=== PATIENT | male | born 1950 | race African-American/Black ===

== ENCOUNTER 2021-10-25 08:49 | Inpatient (IN) | payer MEDICARE, OTHER, SELFPAY ==
[2021-10-25] VITALS (32 sets, daily range): BP systolic 126–194; BP diastolic 47–94; PULSE 65–90; RESP 13–30; TEMP 36.1–37.1; O2SAT 93–100
--- NOTE | ~2021-10-25 | CT_ITS ---
EXAMINATION: CT abdomen pelvis w con DATE: 10/25/2021 09:39 INDICATION: Right upper quadrant abdominal pain, radiating to right shoulder TECHNIQUE: Computed tomography (CT) of the abdomen and pelvis was performed with 100 CC Omnipaque 300 intravenous contrast. Automated exposure control and iterative reconstruction technique were employe d. Exam dose: 387.61 mGy-cm total exam DLP. COMPARISON: None. FINDINGS: Mild bilateral gynecomastia. There is patchy bilateral lower lobe infiltrate and/atelectasis. Normal heart size. Coronary artery c alcifications. No pericardial or pleural effusion. No hepatic, splenic, pancreatic, and adrenal or right renal space-occupying mass lesion is detected. There are at least 2 left renal cysts, the larger measuring approximately 1.8 cm. Moderately prominent prostate enlargement. Radiopaque prostate seeds. The urinary bladder is relatively evacuated, unremarkable. No urinary tract calculus or hydroureteron ephrosis. There is atherosclerotic calcification but normal caliber of the abdominal aorta. No intraperitoneal or retroperitoneal or pelvic mass lesion or adenopathy. Prominent gastric distention and gastric air-fluid level. There is moderate intraperitoneal free air. Small amount of fluid around the superolateral aspect of the liver. Consider proximal duodenal or di stal gastric perforated ulcer. Normal appendix. There is a prominent amount of fecal material in the rectum and colon. No small or large bowel obstru ction is detected. Diffuse idiopathic skeletal hyperostosis of the thoracic spine. Mild degenerative change of the lumba r spine. Bilateral hip osteoarthritis. No suspicious osteolytic or osteoblastic lesions. IMPRESSION: Intraperitoneal free air consistent with hollow viscus perforation. There is prominent gastric distention and gastric air-fluid level is some soft tissue thickening in t he gastroduodenal area. Consider distal gastric or proximal duodenal perforation, possibly due to ulc er disease. Dr. Wood telephoned the report on 10/25/2021 at 0954 hours to emergency room medical affairs director Lenora . Reviewed, dictated and finalized at [facility]. Reviewed, dictated and finalized at [facility]. IMPRESSION: Intraperitoneal free air consistent with hollow viscus perforation . There is prominent gastric distention and gastric air-fluid level is some soft tissue thickening in the gastroduodenal area. Consider distal gastric or proxim al duodenal perforation, possibly due to ulcer disease. Dr. Wood telephoned the report on 10/25/2021 at 0954 hours to emergency room med ical medical administrative assistant Lenora.
--- NOTE | ~2021-10-25 | XR_ITS ---
EXAMINATION: XR abdomen NG/feed tube insert DATE: 10/25/2021 13:18 INDICATION: Nasogastric tube placement. TECHNIQUE: An upright view of the abdomen was obtained. COMPARISON: CT abdomen and pelvis 10/25/2021 FINDINGS: The lower abdomen is excluded. The nasogastric tube tip is in the stomach. There are no dil ated loops of bowel. There is a surgical drain on the right. Skin mc are noted. IMPRESSION: 1. Nasogastric tube tip in the stomach. Reviewed, dictated and finalized at location [facility].
--- NOTE | ~2021-10-25 | XR_ITS ---
EXAMINATION: XR UGI water soluble wo kub DATE: 10/28/2021 11:18 INDICATION: Recent repair of gastric ulcer. Evaluate for leak. TECHNIQUE: Water-soluble contrast with gas effervescent crystals were administered by NG tube. There after, overhead images of the abdomen were performed. 1 minutes of fluroscopy. 5 fluoroscopic images. FINDINGS: Initial images demonstrate a NG tube in the stomach with percutaneous drainage catheter in the epigas tric region. There is laparotomy staple line. There is no significant hiatal hernia. No gastroesopha geal reflux witnessed during the course of the study. No evidence for contrast extravasation identifi ed. The gastric folds are normal. The proximal duodenum is also normal in appearance. IMPRESSION: 1. Unremarkable limited upper GI examination without evidence for contrast extravasation. Reviewed, dictated and finalized at location [facility]. IMPRESSION: 1. Unremarkable limited upper GI examination without evidence for contrast ext ravasation.
--- NOTE | 2021-10-25 08:58 | ECG_ITS ---
Measurements Intervals [place] Rate: 67 P: 52 SD: 145 QRS: 1 QRSD: 104 T: 59 QT: 375 QTc: 397 Interpretive Statements SINUS RHYTHM LEFT VENTRICULAR HYPERTROPHY WITH ST-T CHANGE BORDERLINE ST-T WAVE ABNORMALITY- ANTERIOR LEADS BASELINE ARTIFACT- II, III, AVF, V5 BORDERLINE ECG Electronically Signed On 10-25-2021 9:50:49 CDT by Alexandre Live D.O.
--- NOTE | 2021-10-25 09:03 | ED.SYNCOPE ---
HPI - Syncope General Chief Complaint: Syncope <Corrine Granger PA-C - Last Filed: 10/25/21 18:48> Stated Complaint: Dizziness <WANG Hess Last Filed: 10/25/21 18:48> Time Seen by Provider: 10/25/21 08:57 <WANG Hess Last Filed: 10/25/21 18:48> Source: patient <WANG Hess Last Filed: 10/25/21 18:48> Mode of arrival: ambulatory <WANG Hess Last Filed: 10/25/21 18:48> Limitations: no limitations <WANG Hess Last Filed: 10/25/21 18:48> History of Present Illness HPI narrative: Patient is a 71-year-old male who presents to the ED with report of right upper abdominal pain. Patient reports having diffuse upper abdominal pain, worst in right upper quadrant, radiating to back and right shoulder. Pain began 2 hours ago. He reports feeling nauseous and slightly dizzy due to the pain. No vomiting. No fever, chills. He has been slightly constipated lately and had a small BM yesterday, no blood. Patient has never had pain like this before. He has not taken anything for pain prior to arrival. No previous history of gallbladder issues or gallstones. Patient believes he had a history of ulcer in the distant past. Has had issues with acid reflux and intermittent upper abdominal pain X 1 year, but states he has been taking apple cider vinegar which has helped. He did have an endoscopy around 3 years ago at the [facility]. Hx of H. pylori. No ETOH use. <WANG Hess Last Filed: 10/25/21 18:48> Related Data Home Medications: Home Medications Medication Instructions Recorded Confirmed cetirizine 10 mg tablet 10 mg PO DAILY PRN Allergy Symptoms 10/25/21 10/25/21 cyclobenzaprine 10 mg tablet 10 mg PO TID PRN Muscle Spasm 10/25/21 10/25/21 levalbuterol tartrate 45 2 inh inhalation Q6H PRN Dyspnea 10/25/21 10/25/21 mcg/actuation aerosol inhaler (Xopenex HFA) lisinopril 20 1 tablet PO DAILY 10/25/21 10/25/21 mg-hydrochlorothiazide 12.5 mg tablet meloxicam 15 mg tablet 15 mg PO DAILY PRN Pain 10/25/21 10/25/21 rosuvastatin 5 mg tablet 2.5 mg PO DAILY 10/25/21 10/25/21 simethicone 80 mg chewable tablet 80 mg PO DAILY PRN Heartburn 10/25/21 10/25/21 tamsulosin 0.4 mg capsule 0.4 mg PO HS 10/25/21 10/25/21 <Corrine Granger PA-C - Last Filed: 10/25/21 18:48> Allergies/Adverse Reactions: Allergies Allergy/AdvReac Type Severity Reaction Status Date / Time [id number]-MrH Reductase Allergy Other Verified 10/25/21 14:59 Inhibitor <Corrine Granger PA-C - Last Filed: 10/25/21 18:48> Review of Systems Review of Systems: CONSTITUTIONAL: Denies fever, chills, or sweats. CARDIOVASCULAR: Denies chest pain. RESPIRATORY: Denies dyspnea. GASTROINTESTINAL: Reports right upper quadrant abdominal pain, nausea, constipation. Denies rectal bleeding, vomiting, or diarrhea. MUSCULOSKELETAL: Reports pain radiating to back and right shoulder. NEUROLOGIC: Reports dizziness. Denies headache, numbness, or weakness. <Corrine Granger PA-C - Last Filed: 10/25/21 18:48> All systems reviewed & are unremarkable except as noted in HPI and below <Corrine Granger PA-C - Last Filed: 10/25/21 18:48> PMFSH Past Medical History Medical History: Medical History BPH (benign prostatic hyperplasia) COPD (chronic obstructive pulmonary disease) History of Helicobacter pylori infection Hypercholesterolemia Hypertension CLYDE (obstructive sleep apnea) <Corrine Granger PA-C - Last Filed: 10/25/21 18:48> Surgical History Surgical History: Surgical History History of colonoscopy History of endoscopy <Corrine Granger PA-C - Last Filed: 10/25/21 18:48> Family History Family History: Family History (Updated 10/25/21 @ 15:24 by Jaylin Ziegler RN) Father Malignant neoplasm of prostate Mother Non-Hodgkin lymphoma
[2021-10-25 09:05] LABS: Basophils Percent Auto 0.5 % (0.2-1.2); Eosinophils Absolute Auto 0.2 K/mm3 (0-0.3); Hematocrit 42.8 % (42.0-52.0); Hemoglobin 13.8 g/dL (14.0-18.0); Immature Granulocyte Absolute 0.03 K/mm3 (0.00-0.031); Immature Granulocyte Percent A 0.4 % (0-0.5); Lymphocytes Absolute Auto 3.43 K/mm3 (0.9-3.2); Lymphocytes Percent Auto 42.8 % (18.3-44.2); Mean Corpuscular HGB Conc 32.2 g/dl (32-36); Mean Corpuscular Volume 89.9 fl (80-100); Mean Platelet Volume 9.1 fl (7.4-10.4); Monocytes Absolute Auto 0.7 K/mm3 (0.1-0.6); Monocytes Percent Auto 8.7 % (2.6-8.5); Neutrophils Absolute Auto 3.7 K/mm3 (1.3-6.7); Neutrophils Percent Auto 45.6 % (45.5-73.1); Platelet Count Result 235 k/mm3 (150-375); Red Blood Count 4.76 M/mm3 (4.6-6.20); Red Cell Distribution Width 13.9 % (11.5-14.5)
[2021-10-25 09:07] LABS: Glucose Point of Care 161 mg/dl (65-105)
[2021-10-25 09:15] LABS: Alanine Aminotransferase 18 U/L (6-50); Albumin Level 4.6 g/dL (3.5-5.1); Alkaline Phosphatase 69 U/L (38-126); Anion Gap 13 mmol/L (8-16); Aspartate Amino Transferase 24 U/L (17-59); Bilirubin,Total 0.7 mg/dL (0.2-1.3); Blood Urea Nitrogen 21 mg/dL (9-20); Carbon Dioxide 19 mmol/L (22-30); Chloride 104 mmol/L (98-107); Estimated CRCL calculation 38 ml/min; Estimated Glomerular Filt Rate 46; Glucose 159 mg/dL (65-110); Potassium 3.9 mmol/L (3.4-5.0); Sodium 136 mmol/L (137-145)
[2021-10-25] MEDS: SODIUM CHLORIDE 0.9% IV 1,000 ML 999 ML IV CONT ×2 (09:17→10:29)
[2021-10-25] MEDS: MORPHINE SULFATE (*CRX) 4 MG/ML INJ IV PUSH ×2 (09:17→17:44)
[2021-10-25] MEDS: ONDANSETRON INJ 4 MG/2 ML VIAL IV PUSH (09:18)
[2021-10-25 09:26] LABS: Troponin I < 0.012 ng/mL (0.000-0.034)
[2021-10-25] MEDS: HYDROmorphone HCL INJ (*CRX) 1 MG/ML SYR IV PUSH (10:04)
--- NOTE | 2021-10-25 10:16 | PM.IMHP ---
H&P: HPI History of Present Illness Date/Time: 10/25/21 10:16 Chief Complaint: upper abdominal pain Narrative: Pt is a 71 y/o M presenting to ED c/o severe upper abdominal pain. Pt reports pain started acutely 2 hours prior to him coming to hospital. Pt reports pain is severe, constant, and sharp most localized to RUQ. Pt reports radiation to R shoulder, chest, back. Pt reports associated anorexia, nausea. Pt reports intermittent, mild epigastric pain over last few mos but nothing this severe. Pt reports having been told he has ulcers in the remote past. Review of Systems Constitutional: Constitutional: Reports anorexia, Denies chills, Denies fatigue, Denies fever(s), Denies lethargy, Denies malaise, Reports poor appetite, Denies weakness, Denies weight gain and Denies weight loss Eyes: Eyes: Reports no additional eye complaints ENT: Reports system reviewed and no additional complaints, except as documented Cardiovascular: Cardiovascular: Reports no additional cardiovascular complaints Respiratory: Respiratory: Reports no additional respiratory complaints Gastrointestinal: Gastrointestinal: Reports as per HPI, Reports abdominal pain, Reports bloating, Reports constipation, Reports GI cramping, Reports heartburn, Reports nausea and Denies vomiting Genitourinary: Genitourinary: Reports no additional male genitourinary complaints Musculoskeletal: Musculoskeletal: Reports no additional musculoskeletal complaints Integumentary/Breasts: Skin/Breast: Reports system reviewed and no additional complaints, except as docu Neurologic: Reports system reviewed and no additional complaints, except as documented Psychiatric: Psychiatric: Reports no additional psychiatric complaints Endocrine: Endocrine: Reports no additional endocrine complaints Hematologic/Lymphatic: Hematologic/Lymphatic: Reports no additional hematologic/lymphatic complaints Allergic/Immunologic: Allergic/Immunologic: Reports no additional allergic/immunologic complaints [facility] Past Medical History Medical History BPH (benign prostatic hyperplasia) History of Helicobacter pylori infection Hypercholesterolemia Hypertension Surgical History Surgical History History of colonoscopy History of endoscopy Social History Social History Smoking status: Former smoker Alcohol intake: current Alcohol use details: Glass of wine 1-2 times a year Meds Home Medications and Allergies Allergies Allergy/AdvReac Type Severity Reaction Status Date / Time Otbxiru-SZQ-ObN Reductase Allergy Other Verified 10/25/21 09:49 Inhibitor Vital Signs Vital Signs - 24 hr 10/25/21 08:53 10/25/21 08:54 10/25/21 08:56 Temperature 36.3 C L Pulse Rate 70 65 71 Respiratory Rate 19 28 H Blood Pressure 157/51 H 157/51 H Pulse Oximetry 95 96 Oxygen Delivery Room Air 10/25/21 09:00 10/25/21 09:01 10/25/21 09:15 Temperature Pulse Rate 79 77 77 Respiratory Rate 26 H 30 H 21 H Blood Pressure 161/47 H Pulse Oximetry 96 97 96 Oxygen Delivery 10/25/21 09:16 10/25/21 09:36 10/25/21 09:45 Temperature Pulse Rate 75 89 Respiratory Rate 20 13 16 Blood Pressure 138/60 Pulse Oximetry 100 93 95 Oxygen Delivery 10/25/21 10:07 Temperature Pulse Rate 88 Respiratory Rate Blood Pressure Pulse Oximetry Oxygen Delivery Exam Const: General: cooperative, alert, awake, Physically active, acute distress mild and uncomfortable Nutritional Appearance: average body habitus Orientation/consciousness: patient oriented x3 HENMT: Head: normal to inspection, normocephalic and atraumatic Eyes: General: appearance normal, both eyes and all related structures Neck: Neck: normal visual inspection, full ROM and no lymphadenopathy Chest: Chest palpation & inspection: normal ins
--- NOTE | 2021-10-25 10:48 | WPDHPUPDATE1 ---
History and Physical Update Update Date/Time: 10/25/21 10:48 History and Physical has been reviewed, including an updated exam of the patient. There are NO changes in the patient's condition. Risks, benefits, and alternatives have been discussed and questions answered. Patient agrees to proceed with procedure.
[2021-10-25 10:58] LABS: SARS-CoV-2 RNA PCR Negative
--- NOTE | 2021-10-25 11:19 | WPDANESEPPF ---
Anes - Initial Pre Proc Eval Procedure: Operation Date: 10/25/21 11:30 Proposed Procedures p Exploratory Laparotomy, Possible Bowel Resection,Possible Ostomy - Korina Sandoval MD Date/Time: 10/25/21 11:19 Surgeon: Korina Sandoval MD Pre Op Diagnosis: Dizziness Patient Data Age: 71 Gender: M Height: 1.7 m Weight: 78 kg Last Vital Signs Temp 36.6 C 10/25/21 11:09 Pulse 88 10/25/21 11:09 Resp 20 10/25/21 11:09 BP 168/63 H 10/25/21 11:09 Pulse Ox 98 10/25/21 11:09 O2 Del Method Room Air 10/25/21 11:09 Allergies Allergy/AdvReac Type Severity Reaction Status Date / Time Fjlnxyh-POV-BxO Reductase Allergy Other Verified 10/25/21 09:49 Inhibitor Laboratory Tests 10/25/21 10/25/21 10/25/21 09:00 09:00 09:06 WBC 8.0 K/mm3 K/mm3 (4.5-10.0) RBC 4.76 M/mm3 M/mm3 (4.6-6.20) Hgb 13.8 g/dL L g/dL (14.0-18.0) Hct 42.8 % % (42.0-52.0) MCV 89.9 fl fl (80-100) MCH 29.0 pg pg (26-34) MCHC 32.2 g/dl g/dl (32-36) RDW 13.9 % % (11.5-14.5) Plt Count 235 k/mm3 k/mm3 (150-375) MPV 9.1 fl fl (7.4-10.4) Immature Gran % (Auto) 0.4 % % (0-0.5) Neut % (Auto) 45.6 % % (45.5-73.1) Lymph % (Auto) 42.8 % % (18.3-44.2) [place] % (Auto) 8.7 % H % (2.6-8.5) Eos % (Auto) 2.0 % % (0-4.4) Baso % (Auto) 0.5 % % (0.2-1.2) Lymph # (Auto) 3.43 K/mm3 H K/mm3 (0.9-3.2) [place] # (Auto) 0.7 K/mm3 H K/mm3 (0.1-0.6) Eos # (Auto) 0.2 K/mm3 K/mm3 (0-0.3) Baso # (Auto) 0.0 K/mm3 K/mm3 (0.0-0.1) Abs Immat Gran (auto) 0.03 K/mm3 K/mm3 (0.00-0.031) Absolute Neuts (auto) 3.7 K/mm3 K/mm3 (1.3-6.7) Absolute Nucleated RBC 0.0 K/mm3 K/mm3 (0.0-0.012) Nucleated RBC % 0.0 % % (0.0-0.2) Sodium 136 mmol/L L mmol/L (137-145) Potassium 3.9 mmol/L mmol/L (3.4-5.0) Chloride 104 mmol/L mmol/L (98-107) Carbon Dioxide 19 mmol/L L mmol/L (22-30) Anion Gap 13 mmol/L mmol/L (8-16) BUN 21 mg/dL H mg/dL (9-20) Creatinine 1.50 mg/dL H mg/dL (0.7-1.3) Estim Creat Clear Calc 38 ml/min ml/min Estimated GFR 46 L (59 - ) Glucose 159 mg/dL H mg/dL (65-110) POC Capillary Glucose 161 mg/dl H mg/dl (65-105) Calcium 9.0 mg/dL mg/dL (8.4-10.2) Total Bilirubin 0.7 mg/dL mg/dL (0.2-1.3) AST 24 U/L U/L (17-59) ALT 18 U/L U/L (6-50) Alkaline Phosphatase 69 U/L U/L (38-126) Troponin I < 0.012 ng/mL ng/mL (0.000-0.034) Total Protein 8.0 g/dL g/dL (6.3-8.2) Albumin 4.6 g/dL g/dL (3.5-5.1) SARS-CoV-2 RNA (RT-PCR) 10/25/21 10:05 WBC RBC Hgb Hct MCV MCH MCHC RDW Plt Count MPV Immature Gran % (Auto) Neut % (Auto) Lymph % (Auto) [place] % (Auto) Eos % (Auto) Baso % (Auto) Lymph # (Auto) [place] # (Auto) Eos # (Auto) Baso # (Auto) Abs Immat Gran (auto) Absolute Neuts (auto) Absolute Nucleated RBC Nucleated RBC % Sodium Potassium Chloride Carbon Dioxide Anion Gap BUN Creatinine Estim Creat Clear Calc Estimated GFR Glucose POC Capillary Glucose Calcium Total Bilirubin AST ALT Alkaline Phosphatase Troponin I Total Protein Albumin SARS-CoV-2 RNA (RT-PCR) Negative Patient hx anesthesia problems: none Family hx anesthesia problems: none Results Review: All pre-operative results and documents have been reviewed as part of the pre-operative evaluation. [facility] Past Medical Hist
--- NOTE | 2021-10-25 12:28 | W.PM.PROC2 ---
Procedure Note - Detailed Date of Procedure 10/25/21 Pre-op Diagnosis Perforated viscus Post-op Diagnosis Other ( perforated gastric ulcer) Procedure Performed exploratory laparotomy, repair of perforated gastric ulcer with Heri patch Surgeon Korina Sandoval MD Anesthesia General Indications 71-year-old male presenting to the emergency department with perforated viscus Findings perforated distal gastric ulcer Description of Procedure The the patient was taken to the operating room and placed in the supine position. After adequate induction of general anesthesia, the patient was prepped and draped in the normal sterile fashion. A time-out was then done to verify the patient's identity as well as the procedure being performed. An upper midline incision was then performed and access was gained into the peritoneal cavity. Upon entering the peritoneum, a gush of air was noted as well as a moderate amount of succus, free fluid. The free fluid and succus was evacuated with the suction device and approximately 500 cc of this fluid was noted in the canister. I then began exploration of the abdomen. The lower abdomen was noted to be benign appearing. Upon examining the upper abdomen, more gastric succus was encountered. I was then able to identify a perforation in the distal stomach. This her perforation was noted to be about 1 x 1 cm. There was surrounding inflammation at the area of perforation. I went ahead and primarily repaired this perforated gastric ulcer in 2 layers. Once repaired, I reinforced this closure with a omental patch. I then positioned the NG just proximal to our repair. We then flushed approximately 50 cc of normal saline through the NG. No further leakage was noted at this time. The NG was then taped into position. I then copiously irrigated the abdomen and no other pathology was encountered. I then left a 15 Tamazight JAMIL drain in the upper abdomen terminating near the site of the repair. The upper midline incision was then closed at the fascial level with PDS suture. The skin was closed with skin mc. The patient tolerated the procedure well and was extubated in the operating room postoperatively. He will be transferred to the recovery room in stable condition. Estimated Blood Loss 20 Drains Yes Pathology None sent Complications No immediate complications Condition Stable Disposition PACU [facility] Billing Surgery - Charge Forward: Surgery Billing
[2021-10-25] MEDS: LACTATED RINGERS 1,000 ML 100 ML IV CONT ×2 (12:38→15:33)
[2021-10-25] MEDS: LACTATED RINGERS 1,000 ML 30 ML IV CONT (12:38)
[2021-10-25] MEDS: fentaNYL CITRATE INJ (*CRX) 100 MCG/2 ML VIAL 25 MCG IV PUSH ×4 (12:57→13:16)
--- NOTE | 2021-10-25 14:55 | ADMGEN ---
This patient, Ricardo Damon, was admitted to Medical Room 253-01. Patient/family oriented to hospital policies and general routines including ID bracelet, bed and alarms, visiting hours, pain management, procedures, bathroom and other care routines, personal items, smoking policy, room service/diet, and visiting hours. Information on how to activate the Rapid Response Team has been discussed. Patient/Family are encouraged to report perceived risks to care and to ask questions if they do not understand what they are told or what they should do.
[2021-10-25 17:44] LABS: Add Urine Microscopic? YES; Appearance Urine Clear (Clear); Bilirubin Urine Negative (Negative); Blood Urine Trace-Intact (Negative); Color Urine Yellow (Yellow); Glucose Urine UA Negative (Negative); Ketones Urine Negative (Negative); Leukocyte Esterase Ur Negative LEU/UL (Negative); Nitrate Urine Negative (Negative); Protein Urine 1+ mg/dL (Negative); Specific Grav Ur 1.015 (1.001-1.035); Urobilinogen Urine 0.2 mg/dL (<2.0); pH Urine 5.5 (5.0-9.0)
[2021-10-25 17:50] LABS: Bacteria Urine Trace /hpf; Mucus Urine Rare /lpf; WBC Urine 0-3 /hpf
[2021-10-25] MEDS: FAMOTIDINE 20 MG/2 ML VIAL IV PUSH (21:15)
[2021-10-26 01:08] VITALS: BP 106/55; PULSE 82; RESP 20; TEMP 36.5; O2SAT 98
[2021-10-26] MEDS: LACTATED RINGERS 1,000 ML 100 ML IV CONT ×2 (03:50→17:23)
[2021-10-26] MEDS: MORPHINE SULFATE (*CRX) 2 MG/ML INJ IV PUSH (04:00)
[2021-10-26 05:39] LABS: Hematocrit 40.1 % (42.0-52.0); Hemoglobin 13.4 g/dL (14.0-18.0); Mean Corpuscular HGB Conc 33.4 g/dl (32-36); Mean Corpuscular Hemoglobin 29.6 pg (26-34); Mean Corpuscular Volume 88.5 fl (80-100); Mean Platelet Volume 9.2 fl (7.4-10.4); Platelet Count Result 202 k/mm3 (150-375); Red Blood Count 4.53 M/mm3 (4.6-6.20); Red Cell Distribution Width 14.3 % (11.5-14.5); White Blood Count 6.2 K/mm3 (4.5-10.0)
[2021-10-26 05:42] LABS: Anion Gap 6 mmol/L (8-16); Blood Urea Nitrogen 20 mg/dL (9-20); Calcium 7.8 mg/dL (8.4-10.2); Carbon Dioxide 24 mmol/L (22-30); Chloride 104 mmol/L (98-107); Estimated CRCL calculation 38 ml/min; Estimated Glomerular Filt Rate 56; Glucose 91 mg/dL (65-110); Potassium 4.4 mmol/L (3.4-5.0); Sodium 134 mmol/L (137-145)
[2021-10-26 06:00] VITALS: BP 111/56; PULSE 78; RESP 20; TEMP 36.2; O2SAT 98
--- NOTE | 2021-10-26 06:49 | WPDANESPN ---
Anes - Prog Note Post-Op Date/Time: 10/26/21 06:49 Cardiovascular status: normal Respiratory status: normal Airway patency: baseline Mental status: baseline Post-Op hydration status: normal Vital Signs: Last Vital Signs Temp 36.5 C 10/26/21 01:08 Pulse 82 10/26/21 01:08 Resp 20 10/26/21 01:08 BP 106/55 L 10/26/21 01:08 Pulse Ox 98 10/26/21 01:08 O2 Del Method Nasal Cannula 10/25/21 20:00 O2 Flow Rate 2 10/25/21 20:00 Pain Score (VAS): 0 I/O: Intake & Output 10/25/21 10/25/21 10/26/21 15:59 23:59 07:59 Intake Total 869 617 4969 Output Total 170 160 Balance 600 80 7604 Laboratory Tests 10/26/21 05:10 10/25/21 10/25/21 10/25/21 09:00 09:00 09:06 WBC 8.0 RBC 4.76 Hgb 13.8 L Hct 42.8 MCV 89.9 MCH 29.0 MCHC 32.2 RDW 13.9 Plt Count 235 MPV 9.1 Immature Gran % (Auto) 0.4 Neut % (Auto) 45.6 Lymph % (Auto) 42.8 [place] % (Auto) 8.7 H Eos % (Auto) 2.0 Baso % (Auto) 0.5 Lymph # (Auto) 3.43 H [place] # (Auto) 0.7 H Eos # (Auto) 0.2 Baso # (Auto) 0.0 Abs Immat Gran (auto) 0.03 Absolute Neuts (auto) 3.7 Absolute Nucleated RBC 0.0 Nucleated RBC % 0.0 Sodium 136 L Potassium 3.9 Chloride 104 Carbon Dioxide 19 L Anion Gap 13 BUN 21 H Creatinine 1.50 H Estim Creat Clear Calc 38 Estimated GFR 46 L Glucose 159 H POC Capillary Glucose 161 H Calcium 9.0 Total Bilirubin 0.7 AST 24 ALT 18 Alkaline Phosphatase 69 Troponin I < 0.012 Total Protein 8.0 Albumin 4.6 Urine Color Urine Appearance Urine pH Ur Specific [place] Urine Protein Urine Glucose (UA) Urine Ketones Ur Blood (Man) Urine Nitrate Urine Bilirubin Urine Urobilinogen Leukocyte Esterase Rfl Urine RBC Urine WBC Urine Bacteria Urine Mucus SARS-CoV-2 RNA (RT-PCR) 10/25/21 10/25/21 10/26/21 10:05 17:34 05:10 WBC Pending RBC Pending Hgb Pending Hct Pending MCV Pending MCH Pending MCHC Pending RDW Pending Plt Count Pending MPV Pending Immature Gran % (Auto) Pending Neut % (Auto) Pending Lymph % (Auto) Pending [place] % (Auto) Pending Eos % (Auto) Pending Baso % (Auto) Pending Lymph # (Auto) Pending [place] # (Auto) Pending Eos # (Auto) Pending Baso # (Auto) Pending Abs Immat Gran (auto) Pending Absolute Neuts (auto) Pending Absolute Nucleated RBC Pending Nucleated RBC % Pending Sodium Potassium Chloride Carbon Dioxide Anion Gap BUN Creatinine Estim Creat Clear Calc Estimated GFR Glucose POC Capillary Glucose Calcium Total Bilirubin AST ALT Alkaline Phosphatase Troponin I Total Protein Albumin Urine Color Yellow Urine Appearance Clear Urine pH 5.5 Ur Specific [place] 1.015 Urine Protein 1+ H Urine Glucose (UA) Negative Urine Ketones Negative Ur Blood (Man) Trace-intact Urine Nitrate Negative Urine Bilirubin Negative Urine Urobilinogen 0.2 Leukocyte Esterase Rfl Negative Urine RBC 6-10 H Urine WBC 0-3 Urine Bacteria Trace Urine Mucus Rare SARS-CoV-2 RNA (RT-PCR) Negative 10/26/21 05:10 WBC RBC Hgb Hct MCV MCH MCHC RDW Plt Count MPV Immature Gran % (Auto) Neut % (Auto) Lymph % (Auto) [place] % (Auto) Eos % (Auto) Baso % (Auto) Lymph # (Auto) [place] # (Auto) Eos # (Auto) Baso # (Auto) Abs Immat Gran (auto) Absolute Neuts (auto) Absolute Nucleated RBC Nucleated RBC % Sodium 134 L Potassium 4.4 Chloride 104 Carbon Dioxide 24 Anion Gap 6 L BUN 20 Creatinine 1.50 H Estim Creat Clear Calc 38 Estimated GFR 56 L Glucose 91 POC Capillary Glucose Calcium 7.8 L Total Bilirubin AST ALT Alkaline Phosphatase Troponin I Total Protein Albumin Urine Color Urine Appearance Urine
[2021-10-26 07:36] LABS: Band Neutrophils Percent 25 % (0-6); Lymphocytes Absolute Manual 1.11 K/mm3 (1.1-4.5); Monocytes Absolute Manual 0.49 K/mm3 (0.1-0.90); Monocytes Percent Manual 8 % (3-9); Neutrophils Absolute Manual 4.58 K/mm3 (1.3-6.7); Neutrophils Percent Manual 49 % (46-73); Total Cells Counted 100
[2021-10-26 07:37] LABS: Platelet Estimate Adequate (Adequate)
[2021-10-26 08:57] VITALS: O2SAT 92
[2021-10-26] MEDS: MORPHINE SULFATE (*CRX) 4 MG/ML INJ IV PUSH ×3 (08:57→20:32)
[2021-10-26] MEDS: FAMOTIDINE 20 MG/2 ML VIAL IV PUSH ×2 (09:02→20:33)
[2021-10-26] MEDS: ENOXAPARIN 40 MG/0.4 ML SYRINGE SUB-Q (09:04)
--- NOTE | 2021-10-26 09:20 | PM.PNGS ---
Progress Note: A&P Assessment and Plan (1) Gastric perforation: Code(s): K25.5 - Chronic or unspecified gastric ulcer with perforation Status: Acute Assessment and Plan: s/p ex lap, repair, doing well, cont routine postop care, will plan UGI in a few days to assess repair/healing, cont PPI Subjective Subjective Date/Time Seen: 10/26/21 09:20 feels much better, some incisional pain Review of Systems Review of Systems: All systems reviewed & are unremarkable except as noted in HPI and below Exam Const: General: cooperative, comfortable and no acute distress Resp: Auscultation: clear to auscultation bilaterally Cardio: Rate: regular rate Rhythm: regular rhythm GI: Inspection: normal to inspection, distended and incision GI Palp: Yes abdominal tenderness, Yes Soft to palpation, Yes Tenderness to palpation present (GI), No Guarding due to palpation present (GI) and No Rigid due to palpation Objective Data Vital Signs Vital Signs: Vital Signs - 24 hr 10/25/21 09:36 10/25/21 09:45 10/25/21 10:07 Temperature Pulse Rate 89 88 Respiratory Rate 13 16 Blood Pressure Pulse Oximetry 93 95 Oxygen Delivery Oxygen Flow Rate 10/25/21 10:00 10/25/21 10:07 10/25/21 10:15 Temperature Pulse Rate 88 88 87 Respiratory Rate Blood Pressure 139/53 L 149/64 H Pulse Oximetry Oxygen Delivery Oxygen Flow Rate 10/25/21 10:16 10/25/21 10:30 10/25/21 10:31 Temperature Pulse Rate 88 81 84 Respiratory Rate Blood Pressure 157/57 H Pulse Oximetry Oxygen Delivery Oxygen Flow Rate 10/25/21 11:09 10/25/21 12:49 10/25/21 12:55 Temperature 36.6 C 36.1 C L Pulse Rate 88 68 75 Respiratory Rate 20 16 23 H Blood Pressure 168/63 H 182/66 H 194/94 H Pulse Oximetry 98 100 100 Oxygen Delivery Room Air Oxygen Flow Rate 10 10 10/25/21 13:10 10/25/21 13:25 10/25/21 13:40 Temperature Pulse Rate 85 85 87 Respiratory Rate 17 16 13 Blood Pressure 191/76 H 176/80 H 152/75 H Pulse Oximetry 100 99 100 Oxygen Delivery Simple Face Mask Nasal Cannula Nasal Cannula Oxygen Flow Rate 6 3 3 10/25/21 13:55 10/25/21 14:10 10/25/21 14:25 Temperature Pulse Rate 89 88 89 Respiratory Rate 14 20 15 Blood Pressure 146/70 H 173/85 H 139/80 Pulse Oximetry 100 100 100 Oxygen Delivery Nasal Cannula Nasal Cannula Nasal Cannula Oxygen Flow Rate 3 3 2 10/25/21 14:30 10/25/21 14:45 10/25/21 16:06 Temperature 37.1 C 37.1 C Pulse Rate 89 90 Respiratory Rate 15 16 Blood Pressure 177/78 H 171/75 H Pulse Oximetry 99 100 98 Oxygen Delivery Nasal Cannula Oxygen Flow Rate 2 10/25/21 15:15 10/25/21 16:15 10/25/21 18:09 Temperature 36.9 C 36.9 C 36.8 C Pulse Rate 77 77 75 Respiratory Rate 16 16 16 Blood Pressure 168/72 H 126/70 128/68 Pulse Oximetry 100 100 98 Oxygen Delivery Oxygen Flow Rate 10/25/21 21:00 10/25/21 20:00 10/26/21 01:08 Temperature 36.4 C L 36.5 C Pulse Rate 78 78 82 Respiratory Rate 21 H 21 H 20 Blood Pressure 127/74 106/55 L Pulse Oximetry 100 100 98 Oxygen Delivery Nasal Cannula Oxygen Flow Rate 2 10/26/21 06:00 10/26/21 06:00 Temperature 36.2 C L 36.2 C L Pulse Rate 78 78 Respiratory Rate 20 20 Blood Pressure 111/56 L 111/56 L Pulse Oximetry 98 98 Oxygen Delivery Oxygen Flow Rate Intake/Output Intake/Output: Intake & Output 10/23/21 10/24/21 10/25/21 10/26/21 23:59 23:59 23:59 23:59 Intake Total 1100 1150 Output Total 330 1200 Balance 770 -50 Meds/Results Medications: Active Medications Generic Name Dose Route Start Last Admin Trade Name Freq PRN Reason Stop Dose Admin Enoxaparin Sodium 40 mg 10/26/21 09:00 10/26/21 09:04 Enoxaparin 40 Mg/0.4 Ml Syringe SUB-Q 40 mg DAILY LOR Administration Famotidine 20 mg 10/25/21 21:00 10/26/21 09:02 Famotidine 20 Mg/2 Ml Vial IV PUSH 20 mg Q12HR LOR Administration Lactated Ringer's 1,000 mls @ 100 mls/hr 10/06
[2021-10-26 10:41] VITALS: BMI 29.7
--- NOTE | 2021-10-26 13:56 | PCNSR ---
On 10/26/21, the student, Leti Marquis, provided care and completed [facility] documentation on this patient. I have reviewed the student's documentation and agree with the findings.
[2021-10-26 14:00] VITALS: BP 109/53; PULSE 85; RESP 20; TEMP 37; O2SAT 98
[2021-10-26 22:38] VITALS: BP 110/58; PULSE 95; RESP 16; TEMP 36.3; O2SAT 94
[2021-10-27 05:30] LABS: Hematocrit 37.8 % (42.0-52.0); Hemoglobin 12.5 g/dL (14.0-18.0); Mean Corpuscular HGB Conc 33.1 g/dl (32-36); Mean Corpuscular Hemoglobin 29.1 pg (26-34); Mean Corpuscular Volume 87.9 fl (80-100); Mean Platelet Volume 9.2 fl (7.4-10.4); Platelet Count Result 197 k/mm3 (150-375); Red Cell Distribution Width 14.5 % (11.5-14.5); White Blood Count 6.8 K/mm3 (4.5-10.0)
[2021-10-27 05:40] LABS: Anion Gap 6 mmol/L (8-16); Blood Urea Nitrogen 18 mg/dL (9-20); Calcium 7.7 mg/dL (8.4-10.2); Carbon Dioxide 27 mmol/L (22-30); Chloride 103 mmol/L (98-107); Estimated CRCL calculation 40 ml/min; Estimated Glomerular Filt Rate 52; Glucose 69 mg/dL (65-110); Potassium 3.9 mmol/L (3.4-5.0); Sodium 136 mmol/L (137-145)
[2021-10-27] MEDS: MORPHINE SULFATE (*CRX) 4 MG/ML INJ IV PUSH ×4 (05:47→17:28)
[2021-10-27 06:00] VITALS: BP 109/61; PULSE 89; RESP 18; TEMP 36.9; O2SAT 95
[2021-10-27 09:20] VITALS: O2SAT 93
[2021-10-27] MEDS: FAMOTIDINE 20 MG/2 ML VIAL IV PUSH (09:42)
[2021-10-27] MEDS: ENOXAPARIN 40 MG/0.4 ML SYRINGE SUB-Q (09:43)
[2021-10-27] MEDS: LACTATED RINGERS 1,000 ML 100 ML IV CONT ×2 (09:51→21:45)
--- NOTE | 2021-10-27 11:35 | PM.PNGS ---
Progress Note: A&P Assessment and Plan (1) Perforated gastric ulcer: Code(s): K25.5 - Chronic or unspecified gastric ulcer with perforation Status: Acute Assessment and Plan: Continue Zosyn and Protonix Continue NG decompression and monitor JAMIL output Will plan for upper GI with Gastrografin tomorrow a.m. Subjective Subjective Date/Time Seen: 10/27/21 11:35 Interval history: Pain controlled, afebrile. Up ambulating. No nausea or vomiting. Mainly complains of sore throat and abdominal pain when 1st sitting up. Exam GI: Inspection: incision (Dressing dry, incision intact) and other (JAMIL minimal serosanguineous) GI Palp: Yes Soft to palpation, Yes Tenderness to palpation present (GI) (Incisional) and No Guarding due to palpation present (GI) Auscultation: normal bowel sounds Objective Data Vital Signs Vital Signs: Vital Signs - 24 hr 10/26/21 14:00 10/26/21 20:30 10/26/21 22:38 Temperature 37.0 C 36.3 C L Pulse Rate 85 95 Respiratory Rate 20 16 Blood Pressure 109/53 L 110/58 L Pulse Oximetry 98 94 Oxygen Delivery Room Air 10/27/21 06:00 10/27/21 09:20 10/27/21 09:50 Temperature 36.9 C Pulse Rate 89 Respiratory Rate 18 Blood Pressure 109/61 Pulse Oximetry 95 93 Oxygen Delivery Room Air Room Air Intake/Output Intake/Output: Intake & Output 10/24/21 10/25/21 10/26/21 10/27/21 23:59 23:59 23:59 23:59 Intake Total 1100 2400 1050 Output Total 330 1852 900 Balance 770 548 150 Meds/Results Medications: Active Medications Generic Name Dose Route Start Last Admin Trade Name Freq PRN Reason Stop Dose Admin Enoxaparin Sodium 40 mg 10/26/21 09:00 10/27/21 09:43 Enoxaparin 40 Mg/0.4 Ml Syringe SUB-Q 40 mg DAILY LOR Administration Lactated Ringer's 1,000 mls @ 100 mls/hr 10/25/21 12:25 10/27/21 09:51 Lr - Lactated Ringers Iv IV CONT 100 mls/hr .Q10H LOR Administration Piperacillin Sod/Tazobactam Sod 2.25 gm in 50 mls @ 100 mls/hr 10/25/21 15:00 10/27/21 09:43 Zosyn 2.25 Gm/D5w 50 Ml IVPB 100 mls/hr Q6H LOR Administration Morphine Sulfate 2 mg 10/25/21 12:24 10/26/21 04:00 Morphine Sulfate (*Crx) 2 Mg/Ml Inj IV PUSH 2 mg Q2H PRN Administration Pain Rated 4-6 Morphine Sulfate 4 mg 10/25/21 12:24 10/27/21 09:48 Morphine Sulfate (*Crx) 4 Mg/Ml Inj IV PUSH 4 mg Q2H PRN Administration Pain Rated 7-10 Naloxone HCl 0.1 mg 10/25/21 12:24 Naloxone Hcl 0.4 Mg/Ml Vial IV PUSH Q2M PRN Opiate Reversal Ondansetron HCl 4 mg 10/25/21 12:24 Ondansetron Inj 4 Mg/2 Ml Vial IV PUSH Q4H PRN Nausea And Vomiting Pantoprazole Sodium 40 mg 10/27/21 11:35 Pantoprazole Sodium Iv 40 Mg Vial IV PUSH Q12HR [facility] Radiology Results: ITS Impressions Abdomen/Pelvis CT 10/25/21 09:40 IMPRESSION: Intraperitoneal free air consistent with hollow viscus perforation. There is prominent gastric distention and gastric air-fluid level is some soft tissue thickening in the gastroduodenal area. Consider distal gastric or proximal duodenal perforation, possibly due to ulcer disease. Dr. Wood telephoned the report on 10/25/2021 at 0954 hours to emergency room medical interpreter Lenora. Abdomen X-Ray 10/25/21 13:23 IMPRESSION: 1. Nasogastric tube tip in the stomach. Labs Labs: Laboratory Results - last 24 hr 10/27/21 10/27/21 05:10 05:10 WBC 6.8 RBC 4.30 L Hgb 12.5 L Hct 37.8 L MCV 87.9 MCH 29.1 MCHC 33.1 RDW 14.5 Plt Count 197 MPV 9.2 Sodium 136 L Potassium 3.9 Chloride 103 Carbon Dioxide 27 Anion Gap 6 L BUN 18 Creatinine 1.60 H Estim Creat Clear Calc 40 Estimated GFR 52 L Glucose 69 Calcium 7.7 L
[2021-10-27 14:00] VITALS: BP 115/70; PULSE 88; RESP 20; TEMP 36.9; O2SAT 96
[2021-10-27] MEDS: PANTOPRAZOLE SODIUM IV 40 MG VIAL IV PUSH ×2 (14:36→21:41)
[2021-10-27] MEDS: PHENOL/SOD PHENO SPRAY CHERRY (*BKC) 1 SPRAY MUCOUS MEM (14:36)
[2021-10-27 19:58] VITALS: BP 106/61; PULSE 83; RESP 16; TEMP 36.6; O2SAT 100
[2021-10-28] MEDS: MORPHINE SULFATE (*CRX) 4 MG/ML INJ IV PUSH ×2 (00:25→09:28)
[2021-10-28 04:27] VITALS: BP 106/58; PULSE 82; RESP 16; TEMP 36.9; O2SAT 95
[2021-10-28 05:14] LABS: Hematocrit 33.4 % (42.0-52.0); Mean Corpuscular HGB Conc 32.9 g/dl (32-36); Mean Corpuscular Volume 88.1 fl (80-100); Mean Platelet Volume 9.5 fl (7.4-10.4); Platelet Count Result 197 k/mm3 (150-375); Red Blood Count 3.79 M/mm3 (4.6-6.20); Red Cell Distribution Width 14.5 % (11.5-14.5); White Blood Count 6.2 K/mm3 (4.5-10.0)
[2021-10-28 05:20] LABS: Anion Gap 11 mmol/L (8-16); Blood Urea Nitrogen 19 mg/dL (9-20); Calcium 7.8 mg/dL (8.4-10.2); Carbon Dioxide 24 mmol/L (22-30); Chloride 101 mmol/L (98-107); Estimated CRCL calculation 44 ml/min; Estimated Glomerular Filt Rate > 60; Glucose 74 mg/dL (65-110); Potassium 3.8 mmol/L (3.4-5.0); Sodium 136 mmol/L (137-145)
[2021-10-28] MEDS: LACTATED RINGERS 1,000 ML 100 ML IV CONT (07:16)
[2021-10-28] MEDS: PANTOPRAZOLE SODIUM IV 40 MG VIAL IV PUSH ×2 (09:35→20:47)
[2021-10-28] MEDS: ENOXAPARIN 40 MG/0.4 ML SYRINGE SUB-Q (09:35)
--- NOTE | 2021-10-28 10:12 | PM.PNGS ---
Progress Note: A&P Assessment and Plan (1) Perforated gastric ulcer: Code(s): K25.5 - Chronic or unspecified gastric ulcer with perforation Status: Acute Assessment and Plan: Continue Zosyn and Protonix Continue NG decompression and monitor JAMIL output Will remove NG if upper GI shows no contrast extravasation Subjective Subjective Date/Time Seen: 10/28/21 10:12 Interval history: Pain controlled, bowels moving, no nausea or vomiting. Upper GI has not been done yet this morning. Exam GI: Inspection: incision (Intact with mc) and other (Minimal serous drainage in JAMIL) GI Palp: Yes Soft to palpation, Yes Tenderness to palpation present (GI) (Incisional) and No Guarding due to palpation present (GI) Auscultation: normal bowel sounds Objective Data Vital Signs Vital Signs: Vital Signs - 24 hr 10/27/21 14:00 10/27/21 19:58 10/27/21 20:33 Temperature 36.9 C 36.6 C Pulse Rate 88 83 Respiratory Rate 20 16 Blood Pressure 115/70 106/61 Pulse Oximetry 96 100 Oxygen Delivery Room Air 10/28/21 04:27 Temperature 36.9 C Pulse Rate 82 Respiratory Rate 16 Blood Pressure 106/58 L Pulse Oximetry 95 Oxygen Delivery Intake/Output Intake/Output: Intake & Output 10/25/21 10/26/21 10/27/21 10/28/21 23:59 23:59 23:59 23:59 Intake Total 1100 2400 2200 1290 Output Total 330 1852 1715 53 Balance 770 080 867 9233 Meds/Results Medications: Active Medications Generic Name Dose Route Start Last Admin Trade Name Taoq PRN Reason Stop Dose Admin Enoxaparin Sodium 40 mg 10/26/21 09:00 10/28/21 09:35 Enoxaparin 40 Mg/0.4 Ml Syringe SUB-Q 40 mg DAILY LOR Administration Lactated Ringer's 1,000 mls @ 100 mls/hr 10/25/21 12:25 10/28/21 07:16 Lr - Lactated Ringers Iv IV CONT 100 mls/hr .Q10H LOR Administration Piperacillin Sod/Tazobactam Sod 2.25 gm in 50 mls @ 100 mls/hr 10/25/21 15:00 10/28/21 09:36 Zosyn 2.25 Gm/D5w 50 Ml IVPB 100 mls/hr Q6H LOR Administration Morphine Sulfate 2 mg 10/25/21 12:24 10/26/21 04:00 Morphine Sulfate (*Crx) 2 Mg/Ml Inj IV PUSH 2 mg Q2H PRN Administration Pain Rated 4-6 Morphine Sulfate 4 mg 10/25/21 12:24 10/28/21 09:28 Morphine Sulfate (*Crx) 4 Mg/Ml Inj IV PUSH 4 mg Q2H PRN Administration Pain Rated 7-10 Naloxone HCl 0.1 mg 10/25/21 12:24 Naloxone Hcl 0.4 Mg/Ml Vial IV PUSH Q2M PRN Opiate Reversal Ondansetron HCl 4 mg 10/25/21 12:24 Ondansetron Inj 4 Mg/2 Ml Vial IV PUSH Q4H PRN Nausea And Vomiting Pantoprazole Sodium 40 mg 10/27/21 11:35 10/28/21 09:35 Pantoprazole Sodium Iv 40 Mg Vial IV PUSH 40 mg Q12HR LOR Administration Phenol 1 spray 10/27/21 11:35 10/27/21 14:36 Phenol/Sod Pheno [place] (*B[facility]) MUCOUS MEM 1 spray PRN PRN Administration Sore Throat Radiology Results: ITS Impressions Abdomen/Pelvis CT 10/25/21 09:40 IMPRESSION: Intraperitoneal free air consistent with hollow viscus perforation. There is prominent gastric distention and gastric air-fluid level is some soft tissue thickening in the gastroduodenal area. Consider distal gastric or proximal duodenal perforation, possibly due to ulcer disease. Dr. Wood telephoned the report on 10/25/2021 at 0954 hours to emergency room medical device Lenora. Abdomen X-Ray 10/25/21 13:23 IMPRESSION: 1. Nasogastric tube tip in the stomach. Labs Labs: Laboratory Results - last 24 hr 10/28/21 10/28/21 04:37 04:37 WBC 6.2 RBC 3.79 L Hgb 11.0 L Hct 33.4 L MCV 88.1 MCH 29.0 MCHC 32.9 RDW 14.5 Plt Count 197 MPV 9.5 Sodium 136 L Potassium 3.8 Chloride 101 Carbon Dioxide 24 Anion Gap 11 BUN 19 Creatinine 1.30 Estim Creat Clear Calc 44 Estimated GFR > 60 Glucose 74 Calcium 7.8 L
[2021-10-28 14:00] VITALS: BP 134/69; PULSE 80; RESP 16; TEMP 37.1; O2SAT 97
[2021-10-28] MEDS: SUCRALFATE SUSP 100 MG/ML 10 ML UDC 1000 MG PO ×2 (16:52→20:47)
[2021-10-28] MEDS: MORPHINE SULFATE (*CRX) 2 MG/ML INJ IV PUSH (20:45)
[2021-10-28 21:02] VITALS: BP 146/69; PULSE 76; RESP 20; TEMP 36.4; O2SAT 92
[2021-10-29 04:31] VITALS: BP 121/57; PULSE 66; RESP 20; TEMP 36.6; O2SAT 96
[2021-10-29 06:05] LABS: Hematocrit 32.5 % (42.0-52.0); Hemoglobin 10.7 g/dL (14.0-18.0); Mean Corpuscular HGB Conc 32.9 g/dl (32-36); Mean Corpuscular Hemoglobin 29.4 pg (26-34); Mean Corpuscular Volume 89.3 fl (80-100); Mean Platelet Volume 9.2 fl (7.4-10.4); Platelet Count Result 193 k/mm3 (150-375); Red Blood Count 3.64 M/mm3 (4.6-6.20); White Blood Count 4.1 K/mm3 (4.5-10.0)
[2021-10-29 06:15] LABS: Anion Gap 8 mmol/L (8-16); Blood Urea Nitrogen 16 mg/dL (9-20); Calcium 7.9 mg/dL (8.4-10.2); Carbon Dioxide 26 mmol/L (22-30); Chloride 101 mmol/L (98-107); Estimated CRCL calculation 44 ml/min; Estimated Glomerular Filt Rate > 60; Glucose 82 mg/dL (65-110); Potassium 3.6 mmol/L (3.4-5.0); Sodium 135 mmol/L (137-145)
[2021-10-29] MEDS: SUCRALFATE SUSP 100 MG/ML 10 ML UDC 1000 MG PO ×2 (06:29→12:43)
[2021-10-29] MEDS: ENOXAPARIN 40 MG/0.4 ML SYRINGE SUB-Q (08:54)
[2021-10-29] MEDS: PANTOPRAZOLE SODIUM IV 40 MG VIAL IV PUSH (08:54)
[2021-10-29 10:15] VITALS: O2SAT 94
--- NOTE | 2021-10-29 10:29 | PM.DS ---
DS: Admitting Diagnosis Discharge Date 10/29/21 Admitting Diagnosis Perforated abdominal viscus Hypertension Asthma Acute kidney injury DS: Discharge Diagnosis Discharge Diagnosis (1) Gastric perforation: Code(s): K25.5 - Chronic or unspecified gastric ulcer with perforation Status: Acute Assessment and Plan: S/p repair perforated gastric ulcer with neo patch on 10/25/[address] Sandoval (2) Hypertension: Code(s): I10 - Essential (primary) hypertension Status: Acute (3) Asthma: Code(s): J45.909 - Unspecified asthma, uncomplicated Status: Acute DS: Summary Hospital Course Reason for hospitalization: Pt is a 71 y/o man who presented to the ER on 10/25/21 with complaints of upper abdominal pain that started earlier that day. He had associated anorexia and nausea. He had been having mild epigastric abdominal pain for a few months that was intermittent. ER workup showed evidence of free intraperitoneal air on CT concerning for perforated viscous. Labs showed a normal WBC count and acute kidney injury with a creatinine of 1.5. He was admitted in this setting and taken urgently to the OR. Hospital Course: Patient underwent exploratory laparotomy, repair of perforated gastric ulcer with Neo patch by Dr. Sandoval. He had evidence of a distal perforated gastric ulcer. He was started on IV Protonix BID, IV Zosyn, sucralfate, and IV fluids. An NG tube was also placed. He was monitored on bowel rest with NG tube decompression post-operatively. On post-op day 3, he had a Gastrografin upper GI that was normal without any extravasation of contrast. NG tube was then removed and he was started on clear liquids. His diet has been advanced to a soft diet today. Serial labs have been monitored and his creatinine has come down to normal. He is now tolerating his diet and pain is controlled. Will switch to oral pain medication today and oral Protonix. He will be discharged later today if he is tolerating a diet and continues to do well with oral pain medication. Incision looks good with mc intact and no signs of infection. He will follow-up in [address] Sandoval for staple removal. Status at Discharge Functional status at discharge: independent ambulation Overall status at discharge: patient is progressing back to baseline Time Spent with Patient Time attestation: Total time spent providing and/or coordinating discharge services: Time spent: Less than 30 minutes Exam Const: General: comfortable and no acute distress Orientation/consciousness: patient oriented x3 Resp: Effort & Inspection: normal respiratory effort Auscultation: clear to auscultation bilaterally Cardio: Rate: regular rate Rhythm: regular rhythm GI: Inspection: non-distended and incision (Abdominal incision dry and mc intact. No erythema or sign of infection) GI Palp: Yes Soft to palpation, Yes Tenderness to palpation present (GI) (incisional) and No Guarding due to palpation present (GI) Auscultation: normal bowel sounds Neuro: General: moves all extremities and no focal motor deficits Extrem: General: no calf tenderness and no edema Psych: Mental Status: mental status grossly normal Insight: Good insight present (Psych) DS: Data Data Completed and Pending Labs on day of discharge: Labs from last 24 hours 10/29/21 10/29/21 05:32 05:32 WBC 4.1 L RBC 3.64 L Hgb 10.7 L Hct 32.5 L MCV 89.3 MCH 29.4 MCHC 32.9 RDW 14.0 Plt Count 193 MPV 9.2 Sodium 135 L Potassium 3.6 Chloride 101 Carbon Dioxide 26 Anion Gap 8 BUN 16 Creatinine 1.30 Estim Creat Clear Calc 44 Estimated GFR > 60 Glucose 82 Calcium 7.9 L Procedures/Treatments: Procedures Operation Date: 10/25/21 11:30 Actual Procedure Side Surgeon p Exploratory Laparotomy with Repair of Perforated Gastric Ulcer with Omental Patch Not Applicable Korina Sandoval MD Imaging Radiologist's impre
--- NOTE | 2021-10-29 11:20 | PCNFU ---
Nutrition Follow-Up Complete: Altered GI function related to perforated abdominal viscus as evidenced by NPO diet. goal: Meet nutritional needs. patient is progressing towards goal. We will continue current goal. Pt current nutrition is Low Fiber. Last recorded weight is 82.3 kg, down from 86.2 kg on admit. Bowel Motility:+Bm reported 10/29 Labs Reviewed:Na 135, HCt 32.5,Hgb 10.7 Meds Noted:Carafate, Lovenox, Zosyn Skin: WNL Additional Notes: Patient seen today for nutrition follow up. Patient is tolerating clear liquid diet, diet order has advanced to low fiber for lunch. Agree with diet orders. Monitor diet order, weight, and labs, and follow up in 5 days.
[2021-10-29 14:00] VITALS: BP 131/58; PULSE 68; RESP 18; TEMP 36.8; O2SAT 97
== END 2021-10-29 16:05 | disposition home or self-care (01) | DRG 327 ==
LOC: ANHED 10:15 → ANHSURGERY 10:15 → ANH2MED 14:39
PROVIDERS: Physician Assistant; Surgery; Admitting Provider Surgery; Emergency Provider General Practice; Visit Provider Nurse Practitioner Family
PROC: 0DU607Z Supplement Stomach with Autologous Tissue Substitute, Open Approach (ICD-10-PCS; CPT 49000; principal; 2021-10-25 11:30)
DX: K25.5 Chronic or unspecified gastric ulcer with perforation (principal); N17.9 Acute kidney failure, unspecified; I10 Essential (primary) hypertension; Z20.822 Contact with and (suspected) exposure to COVID-19; J45.909 Unspecified asthma, uncomplicated; N40.0 Benign prostatic hyperplasia without lower urinary tract symptoms; E78.00 Pure hypercholesterolemia, unspecified; J44.9 Chronic obstructive pulmonary disease, unspecified; G47.33 Obstructive sleep apnea (adult) (pediatric); R63.0 Anorexia; Z87.891 Personal history of nicotine dependence
CPT/HCPCS: 36415; 74177; 74240; 80048; 80053; 81001; 82948; 84484; 85025; 85027; 93005; 96374; 96375; 99285; A9270; C9113; C9803; J0131; J0330; J1100; J1170; J1650; J2250; J2270; J2405; J2543; J2704; J2710; J3010; J7030; J7120; Q9967; U0003; U0005

== ENCOUNTER 2022-01-04 01:09 | Day surgery (SDC) | payer MEDICARE, SELFPAY ==
[2021-12-20 11:26] VITALS: BMI 25.5
[2022-01-04 08:14] VITALS: BP 125/68; PULSE 71; RESP 20; TEMP 36.3; O2SAT 100
[2022-01-04] MEDS: LACTATED RINGERS 1,000 ML 150 ML IV CONT (08:33)
--- NOTE | 2022-01-04 09:44 | PM.HPGS ---
History of Present Illness History of Present Illness Consent: Risks, benefits, and alternatives have been discussed and questions answered. Patient agrees to proceed with procedure. Chief complaint: Gastric Ulcer Narrative: Ricardo Damon is a 71 year old male with perforated gastric ulcer that required surgery, he is using ppi daily (says that twice daily was better but [facility] reduced dose), had egd but years ago. Review of Systems Constitutional: Constitutional: Denies headache(s) and Denies weakness Eyes: Eyes: Denies blurry vision ENT: Reports Normal hearing present, Denies headache(s) and Denies neck pain Cardiovascular: Cardiovascular: Denies chest pain and Denies dyspnea Respiratory: Respiratory: Denies dyspnea Gastrointestinal: Gastrointestinal: Reports no additional gastrointestinal complaints Genitourinary: Genitourinary: Denies dysuria Musculoskeletal: Musculoskeletal: Denies neck pain Integumentary/Breasts: Skin/Breast: Denies dry skin Neurologic: Reports Normal hearing present, Denies headache(s) and Denies weakness Psychiatric: Psychiatric: Denies anxiety Endocrine: Endocrine: Denies change in body appearance Hematologic/Lymphatic: Hematologic/Lymphatic: Denies easy bleeding Allergic/Immunologic: Allergic/Immunologic: Denies urticaria PMFSH Past Medical History Medical History BPH (benign prostatic hyperplasia) COPD (chronic obstructive pulmonary disease) History of Helicobacter pylori infection Hypercholesterolemia Hypertension CLYDE (obstructive sleep apnea) Surgical History Surgical History History of colonoscopy History of endoscopy S/P laparotomy exploratory laparotomy, repair of perforated gastric ulcer with Heri patch 10/25/2021 Family History Family History Father Malignant neoplasm of prostate Mother Non-Hodgkin lymphoma Social History Social History Smoking status: Former smoker Tobacco type: cigarettes Alcohol intake: never Alcohol use details: Rarely Substance use: never Substance use type: does not use Living arrangements: with roommate(s) Spiritual care concerns: No Meds Home Medications and Allergies Home Medications Medication Instructions Recorded Confirmed Type cetirizine 10 mg tablet 10 mg PO DAILY PRN Allergy Symptoms 10/25/21 12/20/21 History cyclobenzaprine 10 mg tablet 10 mg PO TID PRN Muscle Spasm 10/25/21 12/20/21 History levalbuterol tartrate 45 2 inh inhalation Q6H PRN Dyspnea 10/25/21 12/20/21 History mcg/actuation aerosol inhaler (Xopenex HFA) lisinopril 20 1 tablet PO DAILY 10/25/21 12/20/21 History mg-hydrochlorothiazide 12.5 mg tablet rosuvastatin 5 mg tablet 2.5 mg PO DAILY 10/25/21 12/20/21 History simethicone 80 mg chewable tablet 80 mg PO DAILY PRN Heartburn 10/25/21 12/20/21 History tamsulosin 0.4 mg capsule 0.4 mg PO HS 10/25/21 12/20/21 History hydrocodone 5 mg-acetaminophen 325 1 tablet PO Q4-6H PRN Pain Rated 10/29/21 12/20/21 Rx mg tablet 4-6 #15 tabs pantoprazole 40 mg tablet,delayed 40 mg PO Q12HR 30 days #60 tabs 10/29/21 12/20/21 Rx release sucralfate 100 mg/mL oral 1,000 mg (10 mL) PO ACHS 14 days 10/29/21 12/20/21 Rx suspension #560 mL ezetimibe 10 mg tablet 10 mg PO DAILY 12/20/21 12/20/21 History mirtazapine 30 mg tablet 30 mg PO HS 12/20/21 12/20/21 History Allergies Allergy/AdvReac Type Severity Reaction Status Date / Time [id number] Reductase Allergy Other Verified 01/04/22 08:13 Inhibitor Vital Signs Vital Signs - 24 hr 01/04/22 08:14 Temperature 97.3 F L Pulse Rate 71 Respiratory Rate 20 Blood Pressure 125/68 Pulse Oximetry 100 Oxygen Delivery Room Air Exam Const: General: comfortable and no acute distr
--- NOTE | 2022-01-04 09:45 | WPDANESEPPF ---
Anes - Initial Pre Proc Eval Procedure: Operation Date: 01/04/22 10:00 Proposed Procedures p Esophagogastroduodenoscopy - Misael Damico MD Date/Time: 01/04/22 09:45 Surgeon: Misael Dmaico MD Pre Op Diagnosis: Gastric Ulcer Patient Data Age: 71 Gender: M Height: 1.7 m Weight: 73.3 kg Last Vital Signs Temp 97.3 F L 01/04/22 08:14 Pulse 71 01/04/22 08:14 Resp 20 01/04/22 08:14 BP 125/68 01/04/22 08:14 Pulse Ox 100 01/04/22 08:14 O2 Del Method Room Air 01/04/22 08:14 Allergies Allergy/AdvReac Type Severity Reaction Status Date / Time [id number] Reductase Allergy Other Verified 01/04/22 08:13 Inhibitor Home Medications Medication Instructions Recorded Confirmed Type cetirizine 10 mg tablet 10 mg PO DAILY PRN Allergy Symptoms 10/25/21 12/20/21 History cyclobenzaprine 10 mg tablet 10 mg PO TID PRN Muscle Spasm 10/25/21 12/20/21 History levalbuterol tartrate 45 2 inh inhalation Q6H PRN Dyspnea 10/25/21 12/20/21 History mcg/actuation aerosol inhaler (Xopenex HFA) lisinopril 20 1 tablet PO DAILY 10/25/21 12/20/21 History mg-hydrochlorothiazide 12.5 mg tablet rosuvastatin 5 mg tablet 2.5 mg PO DAILY 10/25/21 12/20/21 History simethicone 80 mg chewable tablet 80 mg PO DAILY PRN Heartburn 10/25/21 12/20/21 History tamsulosin 0.4 mg capsule 0.4 mg PO HS 10/25/21 12/20/21 History hydrocodone 5 mg-acetaminophen 325 1 tablet PO Q4-6H PRN Pain Rated 10/29/21 12/20/21 Rx mg tablet 4-6 #15 tabs pantoprazole 40 mg tablet,delayed 40 mg PO Q12HR 30 days #60 tabs 10/29/21 12/20/21 Rx release sucralfate 100 mg/mL oral 1,000 mg (10 mL) PO ACHS 14 days 10/29/21 12/20/21 Rx suspension #560 mL ezetimibe 10 mg tablet 10 mg PO DAILY 12/20/21 12/20/21 History mirtazapine 30 mg tablet 30 mg PO HS 12/20/21 12/20/21 History Patient hx anesthesia problems: none Family hx anesthesia problems: none Results Review: All pre-operative results and documents have been reviewed as part of the pre-operative evaluation. [facility] Past Medical History Medical History BPH (benign prostatic hyperplasia) COPD (chronic obstructive pulmonary disease) History of Helicobacter pylori infection Hypercholesterolemia Hypertension CLYDE (obstructive sleep apnea) Surgical History Surgical History History of colonoscopy History of endoscopy S/P laparotomy exploratory laparotomy, repair of perforated gastric ulcer with Heri patch 10/25/2021 Family History Family History Father Malignant neoplasm of prostate Mother Non-Hodgkin lymphoma Social History Social History Smoking status: Former smoker Tobacco type: cigarettes Alcohol intake: never Alcohol use details: Rarely Substance use: never Substance use type: does not use Living arrangements: with roommate(s) Spiritual care concerns: No Anes - Eval Final PreProcedure Day of Procedure 01/04/22 09:45 Patient weight: normal Heart: regular rate and rhythm Lungs: clear to auscultation Airway: Mallampati scale class II Neurological: alert and oriented Last oral intake: >/= 8 hours ASA classification: III Emergent: no Anesthetic plan: proceed Anesthesia type and monitoring: general GIVS and standard monitoring Results Review: All pre-operative results and documents have been reviewed as part of the pre-operative evaluation. Informed Consent: The patient's anesthetic plan and its attendant risks and benefits were discussed with the patient/family/POA. Questions were solicited and answers provided to the satisfaction of the patient/family/POA.
[2022-01-04 10:02] VITALS: BP 80/41; PULSE 70; RESP 22; O2SAT 100
[2022-01-04 10:12] VITALS: BP 112/53; PULSE 71; RESP 18; O2SAT 100
[2022-01-04 10:22] VITALS: BP 111/65; PULSE 71; RESP 21; O2SAT 100
== END 2022-01-04 10:35 | disposition home or self-care (01) ==
PROVIDERS: Visit Provider Internal Medicine Gastroenterology
PROC: 0DJ08ZZ Inspection of Upper Intestinal Tract, Via Natural or Artificial Opening Endoscopic (ICD-10-PCS; CPT 43235; principal; 2022-01-04 10:00)
DX: K21.9 Gastro-esophageal reflux disease without esophagitis (principal); K29.50 Unspecified chronic gastritis without bleeding; N40.0 Benign prostatic hyperplasia without lower urinary tract symptoms; Z87.11 Personal history of peptic ulcer disease; J44.9 Chronic obstructive pulmonary disease, unspecified; E78.00 Pure hypercholesterolemia, unspecified; I10 Essential (primary) hypertension; G47.33 Obstructive sleep apnea (adult) (pediatric); Z87.891 Personal history of nicotine dependence
CPT/HCPCS: 43239; 88305; 88342; J2704; J7120

== ENCOUNTER 2024-11-20 18:57 | Emergency (ER) | payer MEDICARE, SELFPAY ==
[2024-11-20 19:07] VITALS: BP 140/60; PULSE 71; RESP 16; TEMP 36.1; O2SAT 99
--- NOTE | 2024-11-20 19:09 | ED.MALEGU ---
HPI - Male Genitourinary General Chief complaint: Urogenital-Male Stated complaint: UTI SYMPTOMS Time Seen by Provider: 11/20/24 19:09 Source: patient Mode of arrival: ambulatory Limitations: no limitations History of Present Illness HPI Narrative: 74-year-old male presents with complaint of dark colored urine with red specks. Noticed earlier this afternoon. No other symptoms. History of UTI 2 years ago. States at that time he had painful urination. Patient is well-appearing. Denies fever, chills, body aches. All systems reviewed and negative except as noted above. Related Data Home Medications ?Medication ?Instructions ?Recorded ?Confirmed ?Last Taken ?Type cetirizine 10 mg tablet 10 mg PO DAILY PRN Allergy Symptoms 10/25/21 12/20/21 01/03/22 History levalbuterol tartrate 45 2 inh inhalation Q6H PRN Dyspnea 10/25/21 12/20/21 01/03/22 History mcg/actuation aerosol inhaler (Xopenex HFA) lisinopril 20 1 tablet PO DAILY 10/25/21 12/20/21 01/04/22 07:00 History mg-hydrochlorothiazide 12.5 mg tablet rosuvastatin 5 mg tablet 2.5 mg PO DAILY 10/25/21 12/20/21 01/03/22 History simethicone 80 mg chewable tablet 80 mg PO DAILY PRN Heartburn 10/25/21 12/20/21 01/03/22 History tamsulosin 0.4 mg capsule 0.4 mg PO HS 10/25/21 12/20/21 01/03/22 History ezetimibe 10 mg tablet 10 mg PO DAILY 12/20/21 12/20/21 01/03/22 History mirtazapine 30 mg tablet 30 mg PO HS 12/20/21 12/20/21 01/03/22 History Allergies Allergy/AdvReac Type Severity Reaction Status Date / Time [id number] Reductase Allergy Other Verified 11/20/24 19:13 Inhibitor [facility] Past Medical History Medical History BPH (benign prostatic hyperplasia) COPD (chronic obstructive pulmonary disease) History of Helicobacter pylori infection Hypercholesterolemia Hypertension CLYDE (obstructive sleep apnea) Surgical History Surgical History History of colonoscopy History of endoscopy S/P laparotomy exploratory laparotomy, repair of perforated gastric ulcer with Heri patch 10/25/2021 Family History Family History Father Malignant neoplasm of prostate Mother Non-Hodgkin lymphoma Social History Social History Smoking status: Former smoker Tobacco type: cigarettes Alcohol intake: never Alcohol use details: Rarely Substance use: never Substance use type: does not use Living arrangements: with roommate(s) Spiritual care concerns: No Comments At time of signature, agree with nursing past medical, surgical, social and family history. There is no relevant family history pertinent to the presenting complaint. Exam Narrative: GENERAL: This is a well-nourished, well-developed patient, in no apparent distress. HEAD: normocephalic, atraumatic. EYES: PERRL. Sclera clear/white. Vision is grossly intact. EARS: External ears normal NOSE: External nose normal NECK: Neck supple, non-tender without lymphadenopathy, masses or thyromegaly. CARDIOVASCULAR: Regular rate and rhythm without murmurs, gallops, or rubs. RESPIRATORY: Clear to auscultation. Breath sounds equal bilaterally. No wheezes, rales, or rhonchi. SKIN: warm, Dry, intact with no suspicious lesions or rash, good texture and turgor. NEURO: awake, alert, and oriented to person, place and time. There were no obvious focal neurologic abnormalities. EXTREMITIES: No joint tenderness, effusion, or edema noted. Course Course Level of Care: Express Care Visit Vital Signs Vital signs: Vital Signs Temperature 36.1 C L 11/20/24 19:07 Pulse Rate 71 11/20/24 19:07 Respiratory Rate 16 11/20/24 19:07 Blood Pressure 140/60 11/20/24 19:07 Pulse Oximetry 99 11/20/24 19:07 Temperature 36.1 C L 11/20/24 19:07 Pulse Rate 71 11/20/24 19:07 Respiratory Rate 16 11/20/24 19:07 Blood Pressure 140/60 11/20/24 19:07 Pulse Oximetry 99 11/20/24 19:07 Reviewed MDM - Male Genitourinary MDM Narrative Medical decision making narrative: Urinalysis normal. Urine culture ordered due to patient wanting further testing. Patient is well-appearing, nontoxic. I looked at his urine sample myself and the urine was yellow, clear without any abnormal specks blood. Discharge Plan Discharge Clinical Impression: Normal urinalysis Patient Disposition: Home Condition: Stable Instructions: General Patient Instructions Additional Instructions: Your urinalysis was normal today. A urine culture was ordered and results will take 48-72 hours. If your urine culture shows an abnormal result we will call you prescribed an antibiotic at that time. Follow-up with your primary care physician as needed. Patient Language: Turkmen Prescriptions: No Action cetirizine 10 mg Tablet 10 mg PO DAILY PRN (Reason: Allergy Symptoms) lisinopril-hydrochlorothiazide 20-12.5 mg Tablet 1 tablet PO DAILY tamsulosin 0.4 mg Capsule 0.4 mg PO HS rosuvastatin 5 mg Tablet 2.5 mg PO DAILY levalbuterol tartrate [Xopenex HFA] 45 mcg/actuation Hfa Aerosol Inhaler 2 inh INHALATION Q6H PRN (Reason: Dyspnea) simethicone 80 mg Tablet,Chewable 80 mg PO DAILY PRN (Reason: Heartburn) sucralfate 100 mg/mL Suspension 1,000 mg PO ACHS 14 Days Qty: 560 0RF mirtazapine 30 mg Tablet 30 mg PO HS ezetimibe 10 mg Tablet 10 mg PO DAILY pantoprazole 40 mg tablet,delayed release (DR/EC) 40 mg PO Q12HR 30 Days Qty: 60 0RF Follow-up/Referrals: Jb,Emily [Other] Time of Disposition: 19:16
[2024-11-20 19:16] LABS: EDUAAPPEAR Clear; EDUABILI Negative (Negative); EDUABLOOD Negative (Negative); EDUACOLOR1 Yellow; EDUAGLUCOSE Negative (Negative); EDUAKETONE Negative (Negative); EDUALEUKO Negative (Negative); EDUANITRATE Negative (Negative); EDUAPH 5.5; EDUAPROTEIN Negative (Negative); EDUASPGRAVITY 1.020; EDUAUROBILI 0.2
== END 2024-11-20 19:20 | disposition home or self-care (01) ==
PROVIDERS: Emergency Provider Nurse Practitioner Family
DX: Z71.1 Person with feared health complaint in whom no diagnosis is made (principal); N40.0 Benign prostatic hyperplasia without lower urinary tract symptoms; J44.9 Chronic obstructive pulmonary disease, unspecified; I10 Essential (primary) hypertension; E78.00 Pure hypercholesterolemia, unspecified; Z87.891 Personal history of nicotine dependence
CPT/HCPCS: 81003; 87086; 99213; G0463